=== PATIENT | male | born 1970 | race Caucasian/White ===

== ENCOUNTER 2016-10-12 18:06 | Emergency (ER) | payer SELFPAY ==
--- NOTE | 2016-10-12 19:59 | C.PDOC ---
History Of Present Illness The patient, a 45 y/o male, presents to the ED for evaluation of left-sided chest pressure and tightness associated with shortness of breath which began a few days ago. Patient notes history of pneumonia for which he was evaluated at [facility]. He denies fever, chills, cough, nausea, vomiting, upper/lower extremity numbness/weakness. Chief Complaint (Nursing): Shortness Of Breath History Per: Patient History/Exam Limitations: no limitations Onset/Duration Of Symptoms: Days Current Symptoms Are (Timing): Still Present Quality: Tightness, Pressure Current Respiratory Medications: See Home Med List Associated Symptoms: denies: Fever, Chills, Bloody Cough, Productive Cough Additional History Per: Patient Past Medical History Reviewed: Historical Data, Nursing Documentation, Vital Signs Vital Signs: Last Vital Signs Temp 98.2 F 10/12/16 22:48 Pulse 70 10/12/16 22:48 Resp 16 10/12/16 23:11 BP 128/87 10/12/16 22:48 Pulse Ox 99 10/12/16 23:20 - Medical History PMH: HTN, Hypercholesterolemia Surgical History: No Surg Hx Family History: States: Unknown Family Hx - Social History Hx Tobacco Use: No Hx Alcohol Use: Yes Hx Substance Use: No - Immunization History Hx Tetanus Toxoid Vaccination: No Hx Influenza Vaccination: No Hx Pneumococcal Vaccination: No Review Of Systems Except As Marked, All Systems Reviewed And Found Negative. Constitutional: Negative for: Fever, Chills Cardiovascular: Positive for: Chest Pain (pressure and tightness ) Respiratory: Positive for: Shortness of Breath. Negative for: Cough Gastrointestinal: Negative for: Nausea, Vomiting Neurological: Negative for: Weakness, Numbness Physical Exam - Physical Exam Appears: Non-toxic, Other (mild distress ) Skin: Normal Color, Warm, Dry Head: Atraumatic, Normacephalic Eye(s): bilateral: Normal Inspection Nose: Normal, No Discharge Oral Mucosa: Moist Throat: Normal, No Erythema, No Exudate Neck: Normal ROM, Supple Chest: Symmetrical, No Deformity, No Tenderness Cardiovascular: Rhythm Regular, No Murmur Respiratory: No Rales, No Rhonchi, No Wheezing, Other (+dyspneic ) Gastrointestinal/Abdominal: Soft, No Tenderness, No Guarding, No Rebound Back: Normal Inspection, No Vertebral Tenderness, No Paraspinal Tenderness Extremity: Normal ROM, Capillary Refill (less than 2 seconds ) Neurological/Psych: Oriented x3, Normal Speech, Normal Cognition Gait: Steady ED Course And Treatment - Laboratory Results Result Diagrams: 10/12/16 19:52 10/12/16 19:52 ECG Interpretation: No Acute Changes Interpretation Of ECG: NSR, poor R-wave progression V1 to V3, abnormal tracings Rate From EC O2 Sat by Pulse Oximetry: 99 Pulse Ox Interpretation: Normal - Radiology CXR: Interpreted by Me, Viewed By Me CXR Interpretation: Yes: Infiltrates ( possible infiltrate right lower lung area ) Progress Note: labs, CXR, EKG ordered and reviewed. Disposition Counseled Patient/Family Regarding: Diagnosis - Disposition Referrals: [facility] [Outside] Disposition: HOME/ ROUTINE Disposition Time: 23:40 Condition: STABLE Prescriptions: Azithromycin [Zithromax] 500 mg PO DAILY #10 tablet Instructions: Upper Respiratory Infection (ED) - POA Present On Arrival: None - Clinical Impression Clinical Impression: Respiratory tract infection - Scribe Statement The provider has reviewed the documentation as recorded by the Scribe (Isidra Carrasco) Provider Attestation: All medical record entries made by the Scribe were at my direction and personally dictated by me. I have reviewed the chart and agree that the record accurately reflects my personal performance of the history, physical exam, medical decision making, and the department course for this patient. I have also personally directed, reviewed, and agree with the discharge instructions and disposition.
[2016-10-12 20:04] LABS: BASO # 0.1 K/uL (0.0-0.2); BASO % 0.7 % (0.0-2.0); EOS # 0.3 K/uL (0.0-0.7); EOS % 4.1 % (0.0-4.0); HEMATOCRIT 46.4 % (35.0-51.0); LYMPH # 2.7 K/uL (1.0-4.3); LYMPH % 31.6 % (20.0-40.0); MEAN CELL VOLUME 94.2 fL (80.0-94.0); MEAN CORPUSCULAR HGB CONC 32.9 g/dL (33.0-37.0); MEAN PLATELET VOLUME 7.5 fL (7.2-11.7); MONO # 0.7 K/uL (0.0-0.8); MONO % 8.2 % (0.0-10.0); NRBC % 0.1 % (0.0-2.0); RED CELL DISTRIBUTION WIDTH 13.9 % (11.5-14.5); WHITE BLOOD COUNT 8.5 K/uL (4.8-10.8)
[2016-10-12 20:09] LABS: CHLORIDE 101 mmol/L (98-107); POTASSIUM 3.9 mmol/L (3.6-5.2); SODIUM 140 mmol/L (132-148)
[2016-10-12 20:11] LABS: AST/SGOT 24 U/L (17-59); BILIRUBIN,TOTAL 0.6 mg/dL (0.2-1.3); CARBON DIOXIDE 28 mmol/L (22-30); GFR AFRICAN-AMERICAN > 60
[2016-10-12 20:12] LABS: ALB/GLOB RATIO 1.3 (1.0-2.1); ALKALINE PHOSPHATASE 48 U/L (38-126); ALT/SGPT 20 U/L (21-72); BLOOD UREA NITROGEN 15 mg/dL (9-20); CALCIUM 8.3 mg/dl (8.6-10.4); GLUCOSE,RANDOM 77 mg/dL (75-110); TOTAL PROTEIN 7.3 g/dL (6.3-8.3)
[2016-10-12] MEDS ORDERED: Azithromycin 500mg/250ML NS 500 MG/250 ML BAG IV STA (22:31)
[2016-10-12 22:49] VITALS: BP 128/87; PULSE 70; RESP 16; TEMP 98.2
[2016-10-12] MEDS ORDERED: Azithromycin 500mg/250ML NS 500 MG/250 ML BAG IVPB ONE (23:16)
[2016-10-12 23:21] VITALS: O2SAT 99
--- NOTE | 2016-10-13 08:37 | RAD ---
HISTORY: chest pain COMPARISON: 10/28/2015 TECHNIQUE: Chest PA and lateral FINDINGS: LUNGS: Again identified is consolidative increased markings at the lateral aspect of the left lower lung zone which may represent persistent scarring. No additional focal infiltrate or effusion. PLEURA: No significant pleural effusion identified. No pneumothorax apparent. CARDIOVASCULAR: Normal. OSSEOUS STRUCTURES: No significant abnormalities. VISUALIZED UPPER ABDOMEN: Normal. OTHER FINDINGS: None. IMPRESSION: Again identified is consolidative increased markings at the lateral aspect of the left lower lung zone which may represent persistent scarring. No additional focal infiltrate or effusion.
--- NOTE | 2016-10-13 11:51 | CARD ---
APPROVED REPORT EKG Measurement Heart [id number] <Conclusion> Normal sinus rhythm Cannot rule out Anterior infarct, age undetermined Abnormal ECG
== END 2016-10-13 00:54 | disposition home or self-care (01) ==
LOC: C.ER 18:06
DX: J98.8 Other specified respiratory disorders (principal)
CPT/HCPCS: 71020; 80053; 83880; 84484; 85025; 85378; 93005; 96360; 99283; J0456

== ENCOUNTER 2016-11-25 08:26 | Emergency (ER) | payer OTHER ==
[2016-11-25] MEDS ORDERED: Albuterol-Ipratrop 3 mg / 0.5 (3 ml) UD IH STA (08:55)
--- NOTE | 2016-11-25 09:10 | RAD ---
HISTORY: SOB COMPARISON: 10/12/2016. TECHNIQUE: Chest PA and lateral FINDINGS: LUNGS: There is redemonstration of linear density in the left lower lobe which may represent scarring. No focal consolidation. PLEURA: No significant pleural effusion identified. No pneumothorax apparent. CARDIOVASCULAR: Normal. OSSEOUS STRUCTURES: No significant abnormalities. VISUALIZED UPPER ABDOMEN: Normal. OTHER FINDINGS: None. IMPRESSION: No active pulmonary disease. Left lower lobe scarring.
[2016-11-25] MEDS ORDERED: Albuterol-Ipratrop 3 mg / 0.5 (3 ml) UD ONE (09:16)
[2016-11-25 09:28] LABS: BASO # 0.1 K/uL (0.0-0.2); BASO % 0.9 % (0.0-2.0); EOS # 0.3 K/uL (0.0-0.7); HEMOGLOBIN 15.9 g/dL (12.0-18.0); LYMPH # 2.2 K/uL (1.0-4.3); LYMPH % 31.6 % (20.0-40.0); MEAN CELL VOLUME 95.4 fL (80.0-94.0); MEAN CORPUSCULAR HEMOGLOBIN 31.3 pg (27.0-31.0); MEAN CORPUSCULAR HGB CONC 32.8 g/dL (33.0-37.0); MEAN PLATELET VOLUME 7.8 fL (7.2-11.7); MONO # 0.6 K/uL (0.0-0.8); MONO % 9.1 % (0.0-10.0); NEUT # 3.7 K/uL (1.8-7.0); NEUT % 54.4 % (50.0-75.0); NRBC % 0.1 % (0.0-2.0); RBC 5.09 Mil/uL (4.40-5.90); RED CELL DISTRIBUTION WIDTH 13.3 % (11.5-14.5); WHITE BLOOD COUNT 6.8 K/uL (4.8-10.8)
[2016-11-25 09:32] LABS: ALBUMIN 3.9 g/dL (3.5-5.0)
[2016-11-25 09:35] LABS: ALB/GLOB RATIO 1.3 (1.0-2.1); AST/SGOT 21 U/L (17-59); GFR AFRICAN-AMERICAN > 60; GFR NON-AFRICAN AMERICAN > 60
[2016-11-25 09:36] LABS: ALT/SGPT 27 U/L (21-72); BLOOD UREA NITROGEN 11 mg/dL (9-20); CALCIUM 8.8 mg/dl (8.6-10.4)
--- NOTE | 2016-11-25 09:39 | C.PDOC ---
History Of Present Illness 46-year-old male, presents to the emergency department with complaints of shortness of breath and pain when he takes a deep breath. Patient is a smoker, states he is trying to quit. patient was seen in ED one month ago and diagnosed with a lung infection. Denies dizziness, leg swelling, cough. No other complaints at this time. Time Seen by Provider: 11/25/16 08:31 Chief Complaint (Nursing): Shortness Of Breath History Per: Patient History/Exam Limitations: no limitations Onset/Duration Of Symptoms: Days Current Symptoms Are (Timing): Still Present Initiating Event: Upper Respiratory Illness Quality: Dull Severity: Mild Associated Symptoms: denies: Fever Past Medical History Reviewed: Historical Data, Nursing Documentation, Vital Signs Vital Signs: Last Vital Signs Temp 97.5 F L 11/25/16 11:48 Pulse 69 11/25/16 11:48 Resp 16 11/25/16 11:48 BP 120/75 11/25/16 11:48 Pulse Ox 98 11/25/16 11:48 - Medical History PMH: HTN, Hypercholesterolemia Surgical History: No Surg Hx Family History: States: No Known Family Hx - Social History Hx Tobacco Use: No Hx Alcohol Use: Yes Hx Substance Use: No - Immunization History Hx Tetanus Toxoid Vaccination: No Hx Influenza Vaccination: No Hx Pneumococcal Vaccination: No Review Of Systems Except As Marked, All Systems Reviewed And Found Negative. Constitutional: Negative for: Fever Cardiovascular: Negative for: Palpitations, Orthopnea, Edema Respiratory: Positive for: Shortness of Breath (pleuritic pain) Gastrointestinal: Negative for: Nausea, Vomiting Neurological: Negative for: Weakness, Numbness, Headache Physical Exam - Physical Exam Appears: Non-toxic, No Acute Distress Skin: Warm, Dry, No Rash Head: Atraumatic, Normacephalic Eye(s): bilateral: Normal Inspection, PERRL, EOMI Nose: Normal Oral Mucosa: Moist Lips: Normal Appearing Neck: Normal ROM Cardiovascular: Rhythm Regular, No Murmur Respiratory: Normal Breath Sounds, No Accessory Muscle Use Extremity: Normal ROM, No Pedal Edema Neurological/Psych: Oriented x3, Normal Speech ED Course And Treatment - Laboratory Results Result Diagrams: 11/25/16 09:20 11/25/16 09:20 Lab Interpretation: Normal ECG: Interpreted By Me ECG Rhythm: Sinus Rhythm ECG Interpretation: Normal O2 Sat by Pulse Oximetry: 97 Pulse Ox Interpretation: Normal - Radiology CXR: Interpreted by Me CXR Interpretation: Yes: No Acute Disease Progress Note: Treated with IVF NSS and duoneb x 1. On re-evaluation lungs clear in no distress Reassessment Condition: Improved Disposition Counseled Patient/Family Regarding: Studies Performed, Diagnosis, Need For Followup, Rx Given - Disposition Referrals: [facility] [Outside] [facility] [Outside] Disposition: HOME/ ROUTINE Disposition Time: 11:00 Condition: IMPROVED Additional Instructions: Return to ED if any increase symptoms Prescriptions: Albuterol HFA [Ventolin HFA 90 mcg/actuation (8 g)] 2 puff IH [id number] PRN #1 puff PRN Reason: Shortness Of Breath Instructions: Dyspnea (ED) - POA Present On Arrival: None - Clinical Impression Clinical Impression: Dyspnea - Scribe Statement The provider has reviewed the documentation as recorded by the Scribe (Jeanie Isaacs) All medical record entries made by the Scribe were at my direction and personally dictated by me. I have reviewed the chart and agree that the record accurately reflects my personal performance of the history, physical exam, medical decision making, and the department course for this patient. I have also personally directed, reviewed, and agree with the discharge instructions and disposition.
[2016-11-25 09:42] LABS: URINE BILIRUBIN NEGATIVE (NEGATIVE); URINE BLOOD NEGATIVE (NEGATIVE); URINE CLARITY Clear (Clear); URINE COLOR Yellow (YELLOW); URINE GLUCOSE (UA) NORMAL (Normal); URINE LEUKOCYTE ESTERASE NEG Leu/uL (Negative); URINE NITRATE NEGATIVE (NEGATIVE); URINE PROTEIN NEGATIVE (NEGATIVE); URINE UROBILINOGEN NORMAL mg/dL (0.2-1.0)
[2016-11-25 10:19] VITALS: PULSE 69
[2016-11-25 11:49] VITALS: BP 120/75; RESP 16; TEMP 97.5
[2016-11-25 16:15] VITALS: O2SAT 97
--- NOTE | 2016-11-26 14:45 | CARD ---
APPROVED REPORT EKG Measurement Heart [id number] [id number] <Conclusion> Normal sinus rhythm Normal ECG
== END 2016-11-25 11:49 | disposition home or self-care (01) ==
LOC: C.ER 08:26
DX: R06.02 Shortness of breath (principal); Z72.0 Tobacco use

== ENCOUNTER 2017-06-22 22:14 | Emergency (ER) | payer SELFPAY ==
[2017-06-22 22:34] VITALS: RESP 20; O2SAT 96
--- NOTE | 2017-06-22 23:17 | C.PDOC ---
History Of Present Illness 46 year old male presents to the ED for evaluation of left knee pain which gradually developed over the past 3 days. Patient reports pain is over the medial aspect of the knee, is localized and worse with ambulation. Patient denies direct trauma/injury to the site, falls, denies deformity, weakness, sensorivascular deficits to Left leg, denies left calf pain. Ambulate to ED for evaluation, not in any apparent distress. Time Seen by Provider: 06/22/17 22:17 Chief Complaint (Nursing): Lower Extremity Problem/Injury History Per: Patient History/Exam Limitations: no limitations Onset/Duration Of Symptoms: Days (3) Current Symptoms Are (Timing): Still Present Additional History Per: Patient - Knee Description Of Injury: denies: Fell, Struck With Object, Struck Against Object, Twisted Past Medical History Reviewed: Historical Data, Nursing Documentation, Vital Signs Vital Signs: Last Vital Signs Temp 97.7 F 06/22/17 23:33 Pulse 77 06/22/17 23:33 Resp 20 06/22/17 23:33 BP 115/74 06/22/17 23:33 Pulse Ox 96 06/22/17 23:37 - Medical History PMH: HTN, Hypercholesterolemia Surgical History: No Surg Hx Family History: States: Unknown Family Hx - Social History Hx Tobacco Use: No Hx Alcohol Use: Yes Hx Substance Use: No - Immunization History Hx Tetanus Toxoid Vaccination: No Hx Influenza Vaccination: No Hx Pneumococcal Vaccination: No Review Of Systems Musculoskeletal: Positive for: Other (left knee pain ) Neurological: Negative for: Weakness, Numbness Physical Exam - Physical Exam Appears: Well, Non-toxic, No Acute Distress Skin: Normal Color, Warm, No Rash, No Ecchymosis Extremity: Normal ROM (LEFT KNEE), Tenderness (MEDIAL ASPECT LEFT KNEE), No Pedal Edema, No Calf Tenderness (LEFT), Capillary Refill (LESS THAN 2SEC TO LEFT FOOT), No Deformity Neurological/Psych: Oriented x3, Normal Speech, Normal Motor, Normal Sensation, Normal Reflexes ED Course And Treatment O2 Sat by Pulse Oximetry: 96 (on RA) Pulse Ox Interpretation: Normal - Other Rad lEFT KNEE X-Ray: Interpreted by Me, Viewed By Me Interpretation: no acute fx or dislocation Progress Note: Left knee XR ordered and reviewed. Motrin PO administered. On re-evaluation, pt is afebrile, hemodynamicaly stable. non-toxic. Ambulatory in ED with stable gait. Left knee; exma c/w mild tendernes sover medial aspect , no edema, no palpable deformity, no calf tenderness. FAROM, no neurovascular deficits. Imaging revgiew and appears normal. Tony wrap applied to left knee. NSAId given. ref. to f/u with Ortho in 2-3 days for re-eval. return if any new changes. Disposition Counseled Patient/Family Regarding: Studies Performed, Diagnosis, Need For Followup, Rx Given - Disposition Referrals: Jimmie Felipe MD [Staff Provider] - [facility] [Outside] Disposition: HOME/ ROUTINE Disposition Time: 23:17 Condition: STABLE Additional Instructions: TONY WRAP TO LEFT KNEE FOR 2 WEEKS LIGHT DUTY TO LEFT LEG FOLLOW UP WITH ORTHOPEDIST IN 2-3 DAYS FOR RE-EVALUATION. RETURN TO ED IF ANY WORSENING OR NEW CHANGES. 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 - Scribe Statement The provider has reviewed the documentation as recorded by the Scribe (Isidra Carrasco) All medical record entries made by the Scribe were at my direction and personally dictated by me. I have reviewed the chart and agree that the record accurately reflects my personal performance of the history, physical exam, medical decision making, and the department course for this patient. I have also personally directed, reviewed, and agree with the discharge instructions and disposition.
[2017-06-22 23:35] VITALS: BP 115/74; PULSE 77; TEMP 97.7
--- NOTE | 2017-06-23 08:10 | RAD ---
PROCEDURE: Left Knee Radiographs. HISTORY: Pain. COMPARISON: None. FINDINGS: BONES: No fracture identified. Superior patellar enthesophytes noted JOINTS: No dislocation seen. Bony articulations appear maintained. JOINT EFFUSION: None. OTHER FINDINGS: None. IMPRESSION: No fracture or dislocation identified.
== END 2017-06-22 23:41 | disposition home or self-care (01) ==
LOC: C.ER 22:14
DX: S83.92XA Sprain of unspecified site of left knee, initial encounter (principal); X58.XXXA Exposure to other specified factors, initial encounter